=== PATIENT | female | born 1970 | race Caucasian/White ===

== ENCOUNTER 2025-02-27 19:20 | Emergency (ER) | payer MEDICARE, OTHER ==
[~2025-02-27 19:20] MED LIST: Iopamidol 370 76% 100 ML VIAL ONE
[2025-02-27 20:03] LABS: Hematocrit 39.5 % (36.0-47.0); Hemoglobin 14.2 g/dL (12.0-16.0); Mean Corpuscular Hemoglobin 29.4 pg (27.0-31.0); Mean Corpuscular Volume 81.9 fl (78.0-98.0); Platelet Count 467 10x3/uL (130-400); Red Blood Cell (RBC) Count 4.83 mill/uL (4.20-5.40); White Blood Cell (WBC) Count 9.0 10x3/uL (4.8-10.8)
[2025-02-27 20:08] LABS: ALT (SGPT) 14 U/L (Less than 34); AST (SGOT) 19 U/L (11-34); Albumin 3.5 g/dL (3.1-4.5); Alkaline Phosphatase 152 U/L (40-110); Anion Gap 16 mmol/L (10-20); BUN (Urea Nitrogen) 24 mg/dL (9.8-20.1); Bilirubin, Total 0.2 mg/dL (0.3-1.2); Calc. Creatinine Clearance 0 mL/min (70-130); Calcium 8.7 mg/dL (7.8-10.44); Carbon Dioxide 21 mmol/L (22-29); Chloride 105 mmol/L (98-107); Globulin 3.4 g/dL (2.4-3.5); Glucose 64 mg/dL (70-105); Potassium 2.9 mmol/L (3.5-5.1); Sodium 139 mmol/L (136-145)
[2025-02-27 20:10] LABS: MDiff Complete? YES; Platelet Adequacy Comment Appears Increased
[2025-02-27 20:14] LABS: Troponin I 0.011 ng/mL (< 0.028)
[2025-02-27] MEDS ORDERED: Aspirin Chewable 81 MG TAB ONE (22:10)
[2025-02-27] MEDS ORDERED: NS 0.9% w/ 20 MEQ KCL 1,000 ML ONE (22:10)
== END 2025-02-27 23:05 | disposition short-term general hospital (02) ==
LOC: BURERS 19:20
DX: R07.2 Precordial pain (principal); E10.9 Type 1 diabetes mellitus without complications
CPT/HCPCS: 71045; 71275; 80053; 83880; 84484; 85025; 93005; J3480; Q9967